=== PATIENT | male | born 1950 | race Caucasian/White ===

== ENCOUNTER 2017-08-18 06:48 | Emergency (ER) ==
[2017-08-18 06:52] VITALS: BP 164/91; TEMP 97.6; BMI 31.5
--- NOTE | 2017-08-18 07:45 | DI ---
EXAM: CHEST FRONTAL VIEW HISTORY: Chest pain. COMPARISON: None FINDINGS: Heart size and mediastinum within normal limits. Lungs are free of infiltrate. No co nsolidation or pleural fluid. There is no pneumothorax or acute bony finding. IMPRESSION: Findings within normal limits.
--- NOTE | 2017-08-18 09:14 | CT ---
EXAM: CT Angiogram Chest. HISTORY: Chest pain. COMPARISON: Chest radiograph earlier the same day. TECHNIQUE: Multiple axial images of the chest were obtained following intravenous administration of 100 mL of Visipaque 320, low osmolar. Images were reformatted in the sagittal and coronal plane. 3- D and maximum intensity projection reformatted images were created on an independent workstation. FINDINGS: Nonenlarged mediastinal and hilar lymph nodes are present. Heart size is normal. No yaron cardial effusion identified. Atherosclerotic calcifications are present in the aorta and coronary ar teries. No pulmonary arterial filling defects are seen. Suspect mild emphysema. Linear opacity along the ri ght fissure on axial images 36 through 45 likely subsegmental atelectasis. No pleural effusion or pn eumothorax identified. Small hiatal hernia is present. Left renal upper pole cortical atrophy is partially imaged.. Osseou s structures are within normal limits for the patient's age IMPRESSION: No evidence for pulmonary embolus or other acute abnormality of the chest.
--- NOTE | 2017-08-18 09:24 | ED.PDOC ---
General ED Provider: Dr. PETR ALEMAN Chief Complaint: Chest Pain Stated Complaint: CHEST PAIN Time Seen by Physician: 07:00 (SEEN WITH ISAIAS HOLCOMB AT ALL TIMES ) Mode of Arrival: Walk-In Information Source: Patient Exam Limitations: No limitations Nursing and Triage Documentation Reviewed and Agree: Yes Reviewed sepsis parameters & appropriate labs ordered?: Yes System Inflammatory Response Syndrome: Not Applicable Sepsis Protocol: For patient's 13 years and over: Temp is 96.8 and below OR 101 and greater Pulse >90 BPM Resp >20/minute Acutely Altered Mental Status Are patient's symptoms suggestive of a new infection, such as: -Pneumonia -Skin, Soft Tissue -Endocarditis -UTI -Bone, Joint Infection -Implantable Device -Acute Abdominal Infection -Wound Infection -Meningitis -Blood Stream Catheter Infection -Unknown System Inflammatory Response Syndrome: Not Applicable Cardiovascular Complaint Exam - Chest Pain Complaint/Exam Onset: Gradual Duration: TODAY WHILE DRIVING 4/10 HISTORY OF STENTS 15 YEARS AGO Symptoms Are: Resolved Timing: Intermittent Length of Chest Pain Episodes: 1 HR Initial Severity: Moderate Current Severity: None Location: Reports: Midsternal Pain Radiates: Reports: None Character: Reports: Dull, Aching Aggravating: Reports: None Alleviating: Reports: None Associated Signs and Symptoms: Denies: Diaphoresis, Nausea, Vomiting, Fever, Palpitations, Cough, Hemoptysis, Back pain, Abdominal pain, Dizziness, Short of air, Calf pain, Calf swelling Related History: Reports: Similar episode Related Surgical History: Reports: None History of Healthcare-Acquired Pneumonia: Reports: No AMI/ACS Risk Factors: Reports: None TAD Risk Factors: Reports: Hypertension Pulmonary Embolism Risk Factors: Reports: None Prior Care for this Complaint: No Recent Stress Test: No Recent Echo/LV Function: No JVD Present: No Subcutaneous Emphysema Present: No Diminshed Breath Sounds: No Reproducible Chest Wall Pain: No Bilateral Pulses Present: No Unequal Pulses Noted: No If Risk Factors for AMI/ACS Consider: EKG, Cardiac Enzymes Differential Diagnoses: ACS, Pulmonary Embolism Quality Indicators For Acute ND or Cardiac Chest Pain: EKG in 10min. Review of Systems - Review Of Systems Constitutional: Reports: No symptoms Eyes: Reports: No symptoms Ears, Nose, Mouth, Throat: Reports: No symptoms Respiratory: Reports: No symptoms Cardiac: Reports: Chest pain GI: Reports: No symptoms : Reports: No symptoms Musculoskeletal: Reports: No symptoms Skin: Reports: No symptoms Neurological: Reports: No symptoms Endocrine: Reports: No symptoms Hematologic/Lymphatic: Reports: No symptoms All Other Systems: Reviewed and Negative Past Medical History - Past Medical History Previously Healthy: Yes Endocrine: Reports: None Cardiovascular: Reports: Hypertension Respiratory: Reports: None Hematological: Reports: None Gastrointestinal: Reports: None Genitourinary: Reports: None Neuro/Psych: Reports: None Musculoskeletal: Reports: None Cancer: Reports: None - Surgical History General Surgical History: Reports: None - Family History Family History: Reports: None - Social History Smoking Status: Former smoker Hx Substance Use: No Alcohol Screening: None - Immunizations Tetanus Shot up to Date: No Physical Exam - Physical Exam Appearance: Well-appearing, No pain distress, Well-nourished Eyes: JOEL, EOMI, Conjunctiva clear ENT: Ears normal, Nose normal, Oropharynx normal Respiratory: Airway patent, Breath sounds clear, Breath sounds equal, Respirations nonlabored Cardiovascular: RRR, Pulses normal, No rub, No murmur GI/: Soft, Nontender, No masses, Bowel sounds normal, No Organomegaly Musculoskeletal: Normal strength, ROM intact, No edema, No calf tenderness Skin: Warm, Dry, Normal color Neurological: Sensation intact, Motor intact, Reflexes intact, Cranial nerves intact, Alert, Oriented Psychiatric: Affect appropriate, Mood appropriate Critical Care Note - Critical Care Note Total Time (mins): 0 Course - Course Hematology/Chemistry: 08/18/17 07:00 08/18/17 07:00 Orders, Labs, Meds: Lab Review 08/18/17 08/18/17 07:00 07:00 WBC 11.97 H RBC 5.11 Hgb 16.2 Hct 47.0 MCV 92.0 MCH 31.7 H MCHC 34.5 RDW Coeff of Dixon 12.8 Plt Count 264 Immature Gran % (Auto) 0.3 Neut % (Auto) 73.6 Lymph % (Auto) 19.4 [place] % (Auto) 5.3 Eos % (Auto) 0.7 Baso % (Auto) 0.7 Immature Gran # (Auto) 0.0 Neut # (Auto) 8.8 H Lymph # (Auto) 2.3 [place] # (Auto) 0.6 Eos # (Auto) 0.1 Baso # (Auto) 0.1 Sodium 136 Potassium 4.1 Chloride 99 Carbon Dioxide 24 Anion Gap 17.1 BUN 11 Creatinine 1.25 H Estimated GFR (MDRD) 58.00 BUN/Creatinine Ratio 8.80 Glucose 299 H Calcium 9.6 Total Bilirubin 0.6 AST 22 ALT 33 Alkaline Phosphatase 89 Total Creatine Kinase 114 Troponin I 0.2030 Total Protein 7.8 Albumin 3.9 Globulin 3.9 Albumin/Globulin Ratio 1.00 Orders Category Date Time Status EKG-(ED ONLY) Stat CARDIO 08/18/17 06:52 Completed EKG-(ED ONLY) Stat CARDIO 08/18/17 08:21 Ordered NPO REMINDER: IMAGING ONCE CARE 08/18/17 08:21 Ordered CBC W/ AUTO DIFF Stat LAB 08/18/17 07:00 Completed COMPREHENSIVE METABOLIC PANEL Stat LAB 08/18/17 07:00 Completed CREATINE KINASE Stat LAB 08/18/17 07:00 Completed TROPONIN I Stat LAB 08/18/17 07:00 Completed CHEST, 1V AP ONLY Stat RADS 08/18/17 06:[address] CHEST PE PROTOCOL Stat RADS 08/18/17 08:21 Ordered Vital Signs: Temp Pulse Resp BP Pulse Ox 08/18/17 06:48 97.6 F 85 16 164/91 H 98 RIN Risk Score RIN Risk Score: Risk Score Odds of by 30D 0 0.1 (0.1-0.2) 1 0.3 (0.2-0.3) 2 0.4 (0.3-0.5) 3 0.7 (0.6-0.9) 4 1.2 (1.0-1.5) 5 2.2 (1.9-2.6) 6 3.0 (2.5-3.6) 7 4.8 (3.8-6.1) Departure - Departure Time of Disposition: 09:25 (DISCUSSED THE NEED FOR TRANSFER TO HIGHER LEVEL OF CARE . MAY WAS PRESENT PT REFUSED . PT WAS ABLE TO UNDERSTAND MY CONCERN FOR CHEST PAIN FURTHER EVALUATION BUT STILL DECLINED IT) Disposition: AMA Discharge Problem: Chest pain Instructions: Angina (ED) Condition: Good Pt referred to PMD for follow-up: Yes IPMP verified?: No Additional Instructions: Please call your Family Physician as soon as possible to schedule a follow-up appointment. Allergies/Adverse Reactions: Allergies No Known Allergies Allergy (Unverified 08/18/17 06:52) Home Medications: Ambulatory Orders Aspirin [Aspir-Low] 81 mg PO DAILY 05/23/18 Lisinopril [Zestril] 2.5 mg PO DAILY 08/18/17 Metoprolol Tartrate 25 mg PO DAILY 08/18/17
== END 2017-08-18 09:57 | disposition left against medical advice (07) ==
LOC: ED 06:48
DX: R07.9 Chest pain, unspecified (principal); I10 Essential (primary) hypertension; Z95.5 Presence of coronary angioplasty implant and graft
CPT/HCPCS: 36415; 80053; 82550; 84484; 85025; 93005; 93010; 99284